=== PATIENT | male | born 1980 | race African-American/Black ===

== ENCOUNTER → 2023-09-22 | Emergency (ER) | payer OTHER ==
[~2023-09-22] MED LIST: Aspirin Chewable 81 MG TAB ONE; Clopidogrel Bisulfate 75 MG TAB ONE; Heparin 10,000 UNITS/ 10 ML VIAL ONE; Nitroglycerin 0.4 MG TAB (25 Tab Bottle) ONE
[2023-09-22 14:08] LABS: #Basophils 0.04 10x3/uL (0.0-0.2); #Eosinphils 0.12 10x3/uL (0.0-0.5); #Monocytes 0.55 10x3/uL (0.0-1.1); #Neutrophils 5.65 10x3/uL (1.5-8.4); %Basophils 0.5 % (0.0-2.0); %Eosinophils 1.4 % (0.0-6.0); %Lymphocytes 24.8 % (18.0-47.0); %Monocytes 6.5 % (0.0-10.0); %Neutrophils 66.3 % (40.0-75.0); Hematocrit 38.7 % (38.8-50.0); Hemoglobin 13.5 g/dL (13.5-17.5); Mean Corpuscular HGB CONC 34.9 g/dL (32.0-36.0); Mean Corpuscular Hemoglobin 27.6 pg (27.0-33.0); Mean Corpuscular Volume 79.1 fl (81.2-95.1); Mean Platelet Volume 11.5 fl (7.4-10.4); Platelet Count 176 10x3/uL (150-450); RBC Distribution Width 16.5 % (11.5-14.5); Red Blood Cell (RBC) Count 4.89 10x6/uL (4.32-5.72); White Blood Cell (WBC) Count 8.5 10x3/uL (3.5-10.5)
[2023-09-22 14:29] LABS: ALT (SGPT) 21 U/L (8-55); AST (SGOT) 21 U/L (5-34); Albumin 3.7 g/dL (3.5-5.0); Alkaline Phosphatase 71 U/L (40-110); Anion Gap 15 mmol/L (10-20); BUN (Urea Nitrogen) 18 mg/dL (8.9-20.6); Bilirubin, Total 0.2 mg/dL (0.2-1.2); Calc. Creatinine Clearance 0 mL/min (70-130); Calcium 9.6 mg/dL (7.8-10.44); Carbon Dioxide 25 mmol/L (22-29); Chloride 102 mmol/L (98-107); Estimated GFR 59; Glucose 170 mg/dL (70-105); Protein, Total 7.7 g/dL (6.0-8.3); Sodium 138 mmol/L (136-145)
[2023-09-22 14:35] LABS: Troponin I 0.081 ng/mL (< 0.028)
== END ==
LOC: CSHERS 13:23
DX: I21.3 ST elevation (STEMI) myocardial infarction of unspecified site (principal)
CPT/HCPCS: 36415; 71045; 80053; 84484; 85025; 93005; 96374; J1644